=== PATIENT | female | born 1995 | race Caucasian/White ===

== ENCOUNTER 2021-02-14 18:27 | Emergency (ER) | payer SELFPAY ==
[~2021-02-14] VITALS: Ht 167.6 cm; Wt 69.0 kg
[~2021-02-14 18:27] MED LIST: MIRENA VG
[2021-02-14 19:04] VITALS: BP 111/62
== END 2021-02-14 21:12 | disposition home or self-care (01) ==
LOC: EMS 18:30
DX: K08.89 Other specified disorders of teeth and supporting structures (principal)
CPT/HCPCS: 99281; Z7502